=== PATIENT | male | born 1985 | race Caucasian/White ===

== ENCOUNTER 2024-07-24 04:49 | Inpatient (IN) | payer OTHER ==
[~2024-07-24] VITALS: Ht 177.8 cm; Wt 142.7 kg
[~2024-07-24 04:49] MED LIST: AMIT10; ASPI81EC PO; CETI10 PO; DIPH50 PO; HYDACE5 PO; HYDCHL50 PO; HYDR1TAB94 PO; Imitrex25 MG PO; Lisinopril2.5 MG PO; PENVK500 PO; TRAM50 PO
[2024-07-24] MEDS ORDERED: Ketorolac Tromethamine 30mg Vial IV ONE (05:40)
[2024-07-24 05:42] LABS: Source, Urine Clean Catch
[2024-07-24 05:55] LABS: Appearance, Urine Clear (Clear); Bilirubin, Urine Neg (Neg); Blood, Urine 2+ (Neg); Color, Urine Yellow (P-Yellow); Glucose Qualitative, Urine Neg (Neg); Ketones, Urine Neg (Neg); Leukocyte Esterase, Urine Neg (Neg); Nitrite, Urine Neg (Neg); Protein, Urine 1+ (Neg); Specific Gravity, Urine 1.025 (1.003-1.022); Urobilinogen, Urine NORM (Normal)
[2024-07-24 06:18] LABS: Bacteria Few /hpf; Red Blood Cells, Urine 0-2 /hpf (0-2); Squamous Epithelial Cells Few /hpf (Few); White Blood Cells, Urine 0-2 /hpf (0-5)
[2024-07-24 06:21] LABS: BASOPHILS ABSOLUTE AUTO 0.05 K/mm3 (0.00-0.23); BASOPHILS PERCENT AUTO 0 % (0-2); EOSINOPHILS ABSOLUTE AUTO 0.01 K/mm3 (0.00-0.68); EOSINOPHILS PERCENT AUTO 0 % (0-6); Hematocrit 42.1 % (37.0-53.0); Hemoglobin 14.7 g/dL (13.5-17.5); IMMATURE GRAN ABSOLUTE AUTO 0.08 K/mm3 (0.00-0.10); IMMATURE GRAN PERCENT AUTO 0 % (0-1); LYMPHOCYTES ABSOLUTE AUTO 1.14 K/mm3 (0.84-5.20); LYMPHOCYTES PERCENT AUTO 6 % (21-46); MONOCYTES ABSOLUTE AUTO 1.66 K/mm3 (0.16-1.47); MONOCYTES PERCENT AUTO 8 % (4-13); Mean Corpuscular HGB 31.9 pg (26.0-34.0); Mean Corpuscular HGB Conc 34.9 g/dL (31.5-36.5); Mean Corpuscular Volume 91 fL (80-100); Mean Platelet Volume 10.3 fL (9.1-12.4); NEUTROPHILS ABSOLUTE AUTO 17.85 K/mm3 (1.96-9.15); NEUTROPHILS PERCENT AUTO 86 % (41-73); Platelet Count 189 K/mm3 (150-400); RDW Standard Deviation 44.2 fL (35.1-46.3); Red Blood Cell Count 4.61 M/mm3 (4.30-5.90); White Blood Cell Count 20.79 K/mm3 (4.00-11.30)
[2024-07-24] MEDS ORDERED: Piperacillin/Tazobactam Sod 4.5 GM in NS 100 ML IV ONE (06:35)
[2024-07-24 06:41] LABS: Albumin, Blood 3.5 g/dL (3.4-5.0); Albumin/Globulin Ratio 0.8 (0.8-1.8); Bilirubin, Total 1.7 mg/dL (0.1-1.0); Bun/Creatinine Ratio 18.7 (12.0-20.0); Calcium, Blood 9.4 mg/dL (8.5-10.1); Creatinine, Blood 0.91 mg/dL (0.60-1.20); Globulin, Blood 4.2 g/dL (2.2-4.0); Potassium, Blood 4.5 mmol/L (3.5-5.5); Total Protein, Blood 7.7 g/dL (6.4-8.2)
[2024-07-24] MEDS ORDERED: Lactated Ringer's 1,000 ML IV SCH ×2 (06:45→16:45)
[2024-07-24] MEDS ORDERED: Ondansetron HCl 2 MG / ML 2ML Vial IV ONE (07:05)
[2024-07-24] MEDS ORDERED: Morphine Sulfate 4 MG/1 ML Injection IV ONE (07:05)
[2024-07-24] MEDS ORDERED: Piperacillin/Tazobactam Sod 4.5 GM in NS 100 ML IV SCH ×2 (08:00→14:00)
[2024-07-24] MEDS ORDERED: FLU VACC TS2024-25(6MOS UP)/PF 45 MCG/0.5 ML SYRINGE IM PRN (08:00)
[2024-07-24] MEDS ORDERED: Pantoprazole Sodium 40 MG in NS 50 ML IV SCH (08:05)
[2024-07-24] MEDS ORDERED: FentaNYL Citrate 50 MCG/ML 2 ML Injection IV PRN ×2 (08:15→14:00)
[2024-07-24] MEDS ORDERED: Lactobacil 2-S.Thermo-Bifido 1 1 Cap PO SCH (09:00)
[2024-07-24] MEDS ORDERED: FentaNYL Citrate 50 MCG/ML 2 ML Injection IV ONE (12:00)
[2024-07-24] MEDS ORDERED: Piperacillin/Tazobactam Sod 3.375 GM in NS 100 ML IV SCH (13:00)
[2024-07-24 16:30] VITALS: BP 124/76
[2024-07-24] MEDS ORDERED: OxyCODONE HCL 5 MG TAB PO PRN (16:45)
[2024-07-24] MEDS ORDERED: METF500 PO (17:29)
[2024-07-24] MEDS ORDERED: Acetaminophen 325 MG TABLET PO PRN (17:35)
--- NOTE | 2024-07-24 17:35 | NUR ---
PT ARRIVED TO UNIT FROM ER ABLE TO STAND AND TRANSFER SELF TO BED, REPORTS PAIN IN GROIN AND RADIATING TO BACK. REMAINS FEBRILE, ORDERS FOR TYLENOL RECIEVED. PT REPORTS PAIN MANAGED PER EMAR, ABX INFUSING AT THIS TIME. CONTINUOUS PROTONIX INFUSING RUNNING. NO PLAN FOR PROCEDURE AT THIS TIME. PT WILL BE NPO AT MIDNIGHT. PT HAS CALL LIGHT IN REACH.
[2024-07-24] MEDS ORDERED: UBRELVY100 MG PO (18:20)
[2024-07-24] MEDS ORDERED: DEPO-TESTO200 MG/1 M IM (18:33)
[2024-07-24 19:02] VITALS: BP 125/74
[2024-07-25 04:41] VITALS: BP 101/67
--- NOTE | 2024-07-25 05:38 | NUR ---
SHIFT SUMMARY SWATHI WAS ALERT AND FULLY ORIENTED ON ASSESMENT. ADMITTED FOR DIVERTIC W/POTENTIAL SMALL PERF. C/O PAIN THAT FEELS "LIKE BEING KICKED IN THE BALLS" PAIN MANAGED MODERATELY WELL. C/O MILD NAUSEA, NO VOMITING. PT ON CLEAR LIQUID DIET, AT THIS TIME THE PLAN APPEARS TO BE TO MANAGE PT CONDITION NON SURGICALLY.
[2024-07-25 06:33] LABS: BASOPHILS ABSOLUTE AUTO 0.05 K/mm3 (0.00-0.23); BASOPHILS PERCENT AUTO 0 % (0-2); EOSINOPHILS ABSOLUTE AUTO 0.04 K/mm3 (0.00-0.68); EOSINOPHILS PERCENT AUTO 0 % (0-6); Hematocrit 43.5 % (37.0-53.0); Hemoglobin 14.7 g/dL (13.5-17.5); IMMATURE GRAN ABSOLUTE AUTO 0.07 K/mm3 (0.00-0.10); IMMATURE GRAN PERCENT AUTO 0 % (0-1); LYMPHOCYTES ABSOLUTE AUTO 1.74 K/mm3 (0.84-5.20); LYMPHOCYTES PERCENT AUTO 10 % (21-46); MONOCYTES ABSOLUTE AUTO 1.29 K/mm3 (0.16-1.47); MONOCYTES PERCENT AUTO 7 % (4-13); Mean Corpuscular HGB Conc 33.8 g/dL (31.5-36.5); Mean Corpuscular Volume 95 fL (80-100); Mean Platelet Volume 10.2 fL (9.1-12.4); NEUTROPHILS ABSOLUTE AUTO 14.48 K/mm3 (1.96-9.15); NEUTROPHILS PERCENT AUTO 82 % (41-73); Platelet Count 201 K/mm3 (150-400); RDW Coefficient Variation 13.2 % (11.7-14.2); RDW Standard Deviation 46.2 fL (35.1-46.3); White Blood Cell Count 17.67 K/mm3 (4.00-11.30)
[2024-07-25 06:55] LABS: Albumin, Blood 3.2 g/dL (3.4-5.0); Albumin/Globulin Ratio 0.8 (0.8-1.8); Bilirubin, Total 1.3 mg/dL (0.1-1.0); Bun/Creatinine Ratio 13.7 (12.0-20.0); Calcium, Blood 8.5 mg/dL (8.5-10.1); Creatinine, Blood 1.02 mg/dL (0.60-1.20); Potassium, Blood 4.2 mmol/L (3.5-5.5); Total Protein, Blood 7.2 g/dL (6.4-8.2)
[2024-07-25 07:26] VITALS: BP 100/70
[2024-07-25] MEDS ORDERED: NS 250 ML IV PRN (09:45)
[2024-07-25] MEDS ORDERED: Acetaminophen 650 MG Supp PR PRN (10:00)
[2024-07-25] MEDS ORDERED: Acetaminophen 325 MG TABLET PO PRN (10:05)
[2024-07-25] MEDS ORDERED: TraMADol HCl 50 MG Tab PO ONE (10:10)
[2024-07-25] MEDS ORDERED: HYDROmorphone HCl 2 MG Tab PO PRN ×3 (12:00→15:20)
[2024-07-25] MEDS ORDERED: HYDROmorphone HCl 2 MG Tab PO ONE ×2 (12:00)
[2024-07-25 15:18] VITALS: BP 118/82
--- NOTE | 2024-07-25 17:08 | NUR ---
SUMMARY PT HAD FEVER THIS AFTERNOON. MEDICATED PER ORDERS W/TYLENOL. HAVE BEEN WORKING ON PAIN MANAGEMENT T/O DAY. MEDICATED PT PER ORDERS T/O DAY FOR PAIN. NEW IV PLACED THIS AFTERNOON BY RICHARD Clinton RN. IF INFUSING W/O DIFFICULTY. INDEPENDENT IN ROOM. CALL LIGHT IN REACH.
--- NOTE | 2024-07-25 18:39 | NUR ---
DR ROMANO IN TO SEE PT.
[2024-07-25 19:04] VITALS: BP 123/77
[2024-07-25 20:47] VITALS: BP 105/75
[2024-07-25] MEDS ORDERED: Docusate Sodium 100 MG Cap PO SCH (21:00)
[2024-07-25] MEDS ORDERED: Ondansetron HCl 2 MG / ML 2ML Vial IV PRN (23:10)
[2024-07-25] MEDS ORDERED: FentaNYL Citrate 50 MCG/ML 2 ML Injection IV PRN (23:10)
[2024-07-26 04:30] VITALS: BP 107/64
[2024-07-26 07:34] VITALS: BP 110/71
--- NOTE | 2024-07-26 07:36 | NUR ---
SHIFT SUMMARY NOC. PT ADMIT FOR ACUTE PERF DIVERTIC. PT A/O X4. PT REPORTED INCREASED NAUSEA AND PAIN AT BEGINING OF SHIFT. NEW ORDERS RECEIVED FOR ZOFRAN AND FENT CHANGED FROM Q2 TO Q4 FOR BREAK THROUGH PAIN. PT HAS HX OF SLEEP APNEA W/O CPAP. ORDERS RECEIVED TO MAINTAIN O2 ABOVE 90%, BIOX PLACED, PT PLACED ON 2.5 L WHILE ASLEEP. RA WHILE AWAKE. AFTER ORDERS RECEIVED, PAIN AND NAUSEA IMPROVED. PT EDUCATED ON NEW ORDERS, PLAN, AND AVAILABILITY. PT MEDICATED WITH ORAL DILAUDID. PT SPOUSE AT BEDSIDE T/O NIGHT. CALL LIGHT IN REACH.
[2024-07-26] MEDS ORDERED: HYDROmorphone HCl 2 MG Tab PO PRN (08:50)
[2024-07-26] MEDS ORDERED: Lisinopril 20 MG Tab PO SCH (09:00)
[2024-07-26] MEDS ORDERED: Enoxaparin 40 MG/0.4 ML SYR SC SCH (09:00)
[2024-07-26 10:07] LABS: BASOPHILS ABSOLUTE AUTO 0.03 K/mm3 (0.00-0.23); BASOPHILS PERCENT AUTO 0 % (0-2); EOSINOPHILS ABSOLUTE AUTO 0.11 K/mm3 (0.00-0.68); EOSINOPHILS PERCENT AUTO 1 % (0-6); Hematocrit 39.3 % (37.0-53.0); Hemoglobin 13.5 g/dL (13.5-17.5); IMMATURE GRAN ABSOLUTE AUTO 0.05 K/mm3 (0.00-0.10); IMMATURE GRAN PERCENT AUTO 0 % (0-1); LYMPHOCYTES ABSOLUTE AUTO 1.33 K/mm3 (0.84-5.20); LYMPHOCYTES PERCENT AUTO 11 % (21-46); MONOCYTES ABSOLUTE AUTO 1.11 K/mm3 (0.16-1.47); MONOCYTES PERCENT AUTO 9 % (4-13); Mean Corpuscular HGB 31.9 pg (26.0-34.0); Mean Corpuscular HGB Conc 34.4 g/dL (31.5-36.5); Mean Corpuscular Volume 93 fL (80-100); Mean Platelet Volume 10.7 fL (9.1-12.4); NEUTROPHILS ABSOLUTE AUTO 9.72 K/mm3 (1.96-9.15); NEUTROPHILS PERCENT AUTO 79 % (41-73); Platelet Count 206 K/mm3 (150-400); RDW Coefficient Variation 12.8 % (11.7-14.2); RDW Standard Deviation 43.5 fL (35.1-46.3); Red Blood Cell Count 4.23 M/mm3 (4.30-5.90); White Blood Cell Count 12.35 K/mm3 (4.00-11.30)
[2024-07-26 10:27] LABS: Albumin, Blood 2.9 g/dL (3.4-5.0); Albumin/Globulin Ratio 0.7 (0.8-1.8); Bilirubin, Total 0.9 mg/dL (0.1-1.0); Bun/Creatinine Ratio 10.4 (12.0-20.0); Calcium, Blood 8.7 mg/dL (8.5-10.1); Creatinine, Blood 0.87 mg/dL (0.60-1.20); Potassium, Blood 3.4 mmol/L (3.5-5.5); Total Protein, Blood 6.9 g/dL (6.4-8.2)
--- NOTE | 2024-07-26 11:02 | NUR ---
DR ROMANO IN TO SEE PT.
[2024-07-26 15:47] VITALS: BP 104/65
--- NOTE | 2024-07-26 16:34 | NUR ---
PREVIOUS IV SITE PREVIOUS IV SITE TO RFA APPEARS MORE RED AND SWOLLEN SINCE WAS DC'D THIS AFTERNOON. OUTLINED W/SKIN PEN, PROVIDED ICE PACK AND NOTIFIED DR SAMUEL.
--- NOTE | 2024-07-26 18:04 | NUR ---
SUMMARY NO ACUTE CHANGES T/O SHIFT. MEDICATED PER ORDERS T/O DAY FOR PAIN. PT HAS NOT REPORTED NAUSEA DURING SHIFT AND IS TOLERATING CLEAR LIQUIDS. HAS HAD TWO BMS DURING DAY. IV TO RFA INFILTRATED. AREA RED, RAISED AND WARM. OUTLINED W/SKIN PEN AND NOTIFIED DR SAMUEL. PROVIDED ICE PACK. PT INDEPENDENT; AMBULATED IN HALLS. CALL LIGHT IN REACH.
[2024-07-26 19:11] VITALS: BP 102/60
--- NOTE | 2024-07-27 00:47 | NUR ---
PT BEHAVIOR PT EXPRESSING ANXIOUS THOUGHTS REGARDING SKIN RFA WHERE PREVIOUS IV INFILTRATED. MILD REDNESS & SWELLING PRESENT RFA. THIS RN EDUCATED PT ON IV INFILTRATION & MANAGEMENT. ENCOURAGED PT TO ELEVATE EXTREMITY, APPLY HEAT VIA KPAD PRN. ENCOURAGED PT TO MONITOR & THAT WITH ELEVATION, HEAT, REST, AND TIME, WILL RESOLVE ON IT'S OWN. 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 THIS RN REASSURED THAT STAFF USUALLY KEEPS TRACK BY CHARTING ON COMPUTER WITHOUT NECESSARILY VERBALIZING. HOWEVER, ADVISED PT & THAT IF IT WOULD MAKE THEM FEEL BETTER, CAN HAVE THEM WRITE I/OS ON WHITEBOARD FOR STAFF TO DOCUMENT WELL. PT & IN AGREEANCE WITH PLAN, VOICED UNDERSTANDING. DENIES FURTHER Q'S/CONCERNS.
--- NOTE | 2024-07-27 04:11 | NUR ---
SHIFT SUMMARY NO ACUTE CHANGES OVERNIGHT. ENDORSES PAIN TO LOWER ABD RADIATING TO LOWER BACK. PAIN MANAGED UTILIZING NPIS AND PER EMAR. DENIES NAUSEA. PASSING GAS, HAD BMS TODAY. TOLERATING CLEAR LIQUIDS WELL. A&OX4, ABLE TO VOICE NEEDS. USED CALL LIGHT APPROPRIATELY T/O SHIFT. PT VOICED UNDERSTANDING OF PLAN OF CARE, DENIES QUESTIONS/CONCERNS AT THIS TIME.
[2024-07-27 05:26] LABS: BASOPHILS ABSOLUTE AUTO 0.03 K/mm3 (0.00-0.23); BASOPHILS PERCENT AUTO 0 % (0-2); EOSINOPHILS ABSOLUTE AUTO 0.17 K/mm3 (0.00-0.68); EOSINOPHILS PERCENT AUTO 2 % (0-6); Hematocrit 38.3 % (37.0-53.0); Hemoglobin 13.1 g/dL (13.5-17.5); IMMATURE GRAN ABSOLUTE AUTO 0.03 K/mm3 (0.00-0.10); IMMATURE GRAN PERCENT AUTO 0 % (0-1); LYMPHOCYTES PERCENT AUTO 17 % (21-46); MONOCYTES ABSOLUTE AUTO 0.74 K/mm3 (0.16-1.47); MONOCYTES PERCENT AUTO 9 % (4-13); Mean Corpuscular HGB 31.8 pg (26.0-34.0); Mean Corpuscular HGB Conc 34.2 g/dL (31.5-36.5); Mean Corpuscular Volume 93 fL (80-100); NEUTROPHILS ABSOLUTE AUTO 6.13 K/mm3 (1.96-9.15); NEUTROPHILS PERCENT AUTO 71 % (41-73); Platelet Count 218 K/mm3 (150-400); RDW Coefficient Variation 12.9 % (11.7-14.2); Red Blood Cell Count 4.12 M/mm3 (4.30-5.90)
[2024-07-27 05:27] VITALS: BP 100/69
[2024-07-27 05:58] LABS: Albumin, Blood 2.7 g/dL (3.4-5.0); Albumin/Globulin Ratio 0.7 (0.8-1.8); Bilirubin, Total 0.8 mg/dL (0.1-1.0); Bun/Creatinine Ratio 7.3 (12.0-20.0); Calcium, Blood 8.5 mg/dL (8.5-10.1); Creatinine, Blood 0.82 mg/dL (0.60-1.20); Globulin, Blood 3.9 g/dL (2.2-4.0); Potassium, Blood 3.6 mmol/L (3.5-5.5); Total Protein, Blood 6.6 g/dL (6.4-8.2)
[2024-07-27 07:41] VITALS: BP 117/69
--- NOTE | 2024-07-27 13:55 | NUR ---
PT TO CT SCAN AT THIS TIME
[2024-07-27 14:17] VITALS: BP 122/85
[2024-07-27] MEDS ORDERED: AMOCLA875 PO (16:26)
[2024-07-27] MEDS ORDERED: PANT20 PO (16:26)
[2024-07-27] MEDS ORDERED: VISBIOME 112.51 EACH PO (16:28)
[2024-07-27] MEDS ORDERED: OXYC5 PO (16:28)
--- NOTE | 2024-07-27 17:04 | NUR ---
DISCHARGE MEDS FAXED TO [facility]. PT TOLERATING DIET. EXCITED TO GO HOME. UNDERSTANDS IMPORTANCE OF TAKING MEDICATIONS SCHEDULED.
[2024-07-27] MEDS ORDERED: Amoxicillin/Clavulanate K 875 MG Tab PO SCH (21:00)
[2024-07-28] MEDS ORDERED: Pantoprazole Sodium 20 MG Tab PO SCH (06:00)
== END 2024-07-27 17:05 | disposition home or self-care (01) | DRG 872 ==
LOC: ER 04:49 → SURS 07:34
PROVIDERS: Family Medicine; Student in an Organized Health Care Education/Training Program; ADMIT Hospitalist
DX: A41.9 Sepsis, unspecified organism (principal); K57.20 Diverticulitis of large intestine with perforation and abscess without bleeding; Z68.42 Body mass index [BMI] 45.0-49.9, adult; R73.03 Prediabetes; E66.9 Obesity, unspecified; K21.9 Gastro-esophageal reflux disease without esophagitis; I10 Essential (primary) hypertension; N50.82 Scrotal pain; G43.909 Migraine, unspecified, not intractable, without status migrainosus; N43.3 Hydrocele, unspecified; I86.1 Scrotal varices; M54.50 Low back pain, unspecified; G89.29 Other chronic pain; Z90.89 Acquired absence of other organs; Z98.890 Other specified postprocedural states; Z87.891 Personal history of nicotine dependence; Z79.811 Long term (current) use of aromatase inhibitors; Z79.84 Long term (current) use of oral hypoglycemic drugs; Z79.899 Other long term (current) drug therapy
CPT/HCPCS: 36415; 74177; 76870; 80053; 81001; 82947; 83605; 85025; 87040; 94762; 96365; 96375; 99285-25; A9270; J1650; J1885; J2270; J2405; J2470; J2543; J3010; J7050; J7120; Q9967

== ENCOUNTER 2025-07-31 17:36 | Emergency (ER) | payer OTHER | END 2025-07-31 20:41 | disposition home or self-care (01) | LOC: ER 17:36 | DX: R10.32 Left lower quadrant pain (principal); K57.32 Diverticulitis of large intestine without perforation or abscess without bleeding; Z87.891 Personal history of nicotine dependence; I10 Essential (primary) hypertension; K21.9 Gastro-esophageal reflux disease without esophagitis; Z79.84 Long term (current) use of oral hypoglycemic drugs; Z79.899 Other long term (current) drug therapy; Z88.8 Allergy status to other drugs, medicaments and biological substances ==

== ENCOUNTER 2025-08-02 11:45 | Emergency (ER) | payer OTHER ==
[~2025-08-02] VITALS: Ht 177.8 cm; Wt 149.7 kg
[~2025-08-02 11:45] MED LIST changes: +AMOCLA875 PO; +DEPO-TESTO200 MG/1 M IM; +METF500 PO; +OXAYDO5 M1 PO; +OXYC5 PO; +PANT20 PO; +UBRELVY100 MG PO; +VISBIOME 112.51 EACH PO
[2025-08-02 12:29] LABS: BASOPHILS ABSOLUTE AUTO 0.05 K/mm3 (0.00-0.23); BASOPHILS PERCENT AUTO 1 % (0-2); EOSINOPHILS ABSOLUTE AUTO 0.05 K/mm3 (0.00-0.68); EOSINOPHILS PERCENT AUTO 1 % (0-6); Hematocrit 41.8 % (37.0-53.0); Hemoglobin 14.4 g/dL (13.5-17.5); IMMATURE GRAN ABSOLUTE AUTO 0.03 K/mm3 (0.00-0.10); IMMATURE GRAN PERCENT AUTO 0 % (0-1); LYMPHOCYTES ABSOLUTE AUTO 2.49 K/mm3 (0.84-5.20); LYMPHOCYTES PERCENT AUTO 25 % (21-46); MONOCYTES ABSOLUTE AUTO 0.81 K/mm3 (0.16-1.47); MONOCYTES PERCENT AUTO 8 % (4-13); Mean Corpuscular HGB Conc 34.4 g/dL (31.5-36.5); Mean Corpuscular Volume 90 fL (80-100); NEUTROPHILS ABSOLUTE AUTO 6.65 K/mm3 (1.96-9.15); NEUTROPHILS PERCENT AUTO 66 % (41-73); NRBC ABSOLUTE 0.00 K/mm3 (0.00-0.02); NRBC Auto 0.0 /100 WBC (0.0-0.2); Platelet Count 251 K/mm3 (150-400); RDW Coefficient Variation 13.2 % (11.7-14.2); RDW Standard Deviation 43.1 fL (35.1-46.3)
[2025-08-02 12:51] LABS: Alanine Aminotransfer (ALT/SGP 43.0 U/L (12-78); Albumin, Blood 3.9 g/dL (3.4-5.0); Albumin/Globulin Ratio 1.0 (0.8-1.8); Anion Gap 9.0 mmol/L (3-11); Aspartate Aminotrans (AST/SGOT 24.0 U/L (12-37); Bilirubin, Total 0.8 mg/dL (0.1-1.0); Blood Urea Nitrogen 18.0 mg/dL (8-24); CO2, Blood 26.0 mmol/L (21-32); Calcium, Blood 9.3 mg/dL (8.5-10.1); Chloride, Blood 105.0 mmol/L (98-108); Creatinine, Blood 0.78 mg/dL (0.60-1.20); Globulin, Blood 3.9 g/dL (2.2-4.0); Glucose, Blood 108.0 mg/dL (70-99); Potassium, Blood 3.8 mmol/L (3.5-5.5); Sodium, Blood 136.0 mmol/L (136-145); Total Protein, Blood 7.8 g/dL (6.4-8.2)
[2025-08-02] MEDS ORDERED: HYDROcodone 5-APAP 325 TAB PO ONE (16:45)
[2025-08-02] MEDS ORDERED: Ondansetron 4 MG SoluTab BC ONE (16:45)
[2025-08-02 17:14] VITALS: BP 155/99
[2025-08-02] MEDS ORDERED: HYDR1TAB94 PO (17:34)
[2025-08-02] MEDS ORDERED: METR500 PO (17:34)
[2025-08-02] MEDS ORDERED: CIPR500 PO (17:34)
[2025-08-02] MEDS ORDERED: ONDA4ODT MM (17:34)
== END 2025-08-02 18:15 | disposition home or self-care (01) ==
LOC: ER 11:45
PROVIDERS: Physician Assistant
DX: K57.33 Diverticulitis of large intestine without perforation or abscess with bleeding (principal); K64.9 Unspecified hemorrhoids; I10 Essential (primary) hypertension; R73.03 Prediabetes; K21.9 Gastro-esophageal reflux disease without esophagitis; Z87.891 Personal history of nicotine dependence; Z79.84 Long term (current) use of oral hypoglycemic drugs; Z79.890 Hormone replacement therapy; Z79.899 Other long term (current) drug therapy; Z59.89 Other problems related to housing and economic circumstances
CPT/HCPCS: 80053; 83690; 85025; 86850; 86900; 86901; 99283; A9270